=== PATIENT | male | born 1945 | race Caucasian/White ===

== ENCOUNTER 2022-08-10 09:49 | Observation (INO) | payer MEDICARE ==
[~2022-08-10] VITALS: Ht 180.3 cm; Wt 89.0 kg
[2022-08-10 10:14] LABS: BASOPHILS ABSOLUTE AUTO 0.02 K/mm3 (0.00-0.23); BASOPHILS PERCENT AUTO 0 % (0-2); EOSINOPHILS ABSOLUTE AUTO 0.07 K/mm3 (0.00-0.68); EOSINOPHILS PERCENT AUTO 1 % (0-6); Hematocrit 21.3 % (37.0-53.0); IMMATURE GRAN ABSOLUTE AUTO 0.02 K/mm3 (0.00-0.10); IMMATURE GRAN PERCENT AUTO 0 % (0-1); LYMPHOCYTES ABSOLUTE AUTO 0.75 K/mm3 (0.84-5.20); LYMPHOCYTES PERCENT AUTO 15 % (21-46); MONOCYTES PERCENT AUTO 10 % (4-13); Mean Corpuscular HGB 30.7 pg (26.0-34.0); Mean Corpuscular HGB Conc 32.9 g/dL (31.5-36.5); Mean Corpuscular Volume 93 fL (80-100); Mean Platelet Volume 11.5 fL (9.1-12.4); NEUTROPHILS ABSOLUTE AUTO 3.82 K/mm3 (1.96-9.15); NEUTROPHILS PERCENT AUTO 74 % (41-73); Platelet Count 138 K/mm3 (150-400); RDW Coefficient Variation 17.3 % (11.7-14.2); RDW Standard Deviation 59.2 fL (35.1-46.3); Red Blood Cell Count 2.28 M/mm3 (4.30-5.90); White Blood Cell Count 5.18 K/mm3 (4.00-11.30)
[2022-08-10 11:30] LABS: Thyroid Stimulating Hormone 1.8 uIU/mL (0.360-4.800)
[2022-08-10 12:19] LABS: Bilirubin, Total 1.7 mg/dL (0.1-1.0); Calcium, Blood 8.7 mg/dL (8.5-10.1); Creatinine, Blood 0.97 mg/dL (0.60-1.20); Globulin, Blood 2.9 g/dL (2.2-4.0); Potassium, Blood 3.6 mmol/L (3.5-5.5); Total Protein, Blood 5.9 g/dL (6.4-8.2)
[2022-08-10] MEDS ORDERED: ACET500 PO (14:49)
[2022-08-10] MEDS ORDERED: ATOR40TA PO (14:50)
[2022-08-10] MEDS ORDERED: ASCO500 PO (14:50)
[2022-08-10] MEDS ORDERED: FURO40 PO (14:57)
[2022-08-10] MEDS ORDERED: FEROSUL325 M1 PO (14:59)
[2022-08-10] MEDS ORDERED: LISI20 PO (15:00)
[2022-08-10] MEDS ORDERED: Daily Vitamin1 EAC8 PO (15:01)
[2022-08-10] MEDS ORDERED: OMEP20ER PO (15:02)
[2022-08-10] MEDS ORDERED: MIRALAX17 GM PO (15:02)
[2022-08-10] MEDS ORDERED: SENNA LAXATIVE8.6 MG PO (15:04)
[2022-08-10] MEDS ORDERED: Vitamin B Comple1 EA PO (15:14)
[2022-08-10] MEDS ORDERED: SPIR25 PO (15:14)
[2022-08-10] MEDS ORDERED: ONDA4ODT MM (15:15)
[2022-08-10] MEDS ORDERED: Prochlorperazin10 MG PO (15:16)
[2022-08-10] MEDS ORDERED: ALLO100 PO (15:17)
[2022-08-10] MEDS ORDERED: GABA300 PO ×2 (15:18→15:26)
[2022-08-10] MEDS ORDERED: FLUOROURACIL30 G2 TOP (15:30)
--- NOTE | 2022-08-10 17:09 | NUR ---
PATIENT TRANSFERED FROM ER THIS AFTERNOON, WITH LOW HGB, GI BLEED. ALLERGY CODEINE. ONE UNIT BLOOD RUNNING NOW, STARTING AT 1615. PATIENT HAS A NEW SP PACER (60), AND VALVE REPLACEMENT. HE WAS RESISTIVE TO COME TO MEDICAL, BUT HAS BEEN APPROPRIATE AND FRIENDLY SINCE ADMITTING. HE USES THE BEDSIDE URINAL WITH SBA. ALERT AND ORIENTATED. TELE IN PLACE. TEST DESIGNER CALLED 1710 STATING THAT PATIENT TAM INTO THE 30 FOR A FEW SECONDS AND THEN BACK UP. PATIENT UNAWARE AND IS NOT SYMPTOMATIC. PATIENT STATES THAT HE HAS HAD SOME YEAST ON THE GROIN. 1630 IV PROTONIX IS HELD DUE TO BLOOD INFUSING, WILL ATTEMPT TO OBTAIN A PO ORDER. TOLERATING TRANSFUSION WELL.
[2022-08-10 20:34] LABS: Hematocrit 20.4 % (37.0-53.0); Hemoglobin 6.6 g/dL (13.5-17.5)
[2022-08-11 02:26] LABS: Hemoglobin 6.9 g/dL (13.5-17.5)
--- NOTE | 2022-08-11 05:58 | NUR ---
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 PT DENIES SOB, CHEST PAIN. 20:22 HGB 6.6; NEW ORDER FOR 1 UNIT OF BLOOD AND 20MG IV LASIX. PT REQ TO WAIT UNTIL 0100 LABS F/BLOOD TRANSFUSION. HGB WAS 6.9; PT AGREED TO TRANSFUSION; PT TOLERATED WELL. PT ON TELE; PACED AT 60 BPM. PT CONT TO USED URINAL AT BEDSIDE. VSS. PT ABLE TO ADVOCATE FOR SELF AND CALLS APPROPRIATELY; CALL LIGHT IN REACH.
[2022-08-11 08:00] LABS: BASOPHILS ABSOLUTE AUTO 0.03 K/mm3 (0.00-0.23); BASOPHILS PERCENT AUTO 1 % (0-2); EOSINOPHILS PERCENT AUTO 2 % (0-6); Hematocrit 24.3 % (37.0-53.0); Hemoglobin 7.9 g/dL (13.5-17.5); IMMATURE GRAN ABSOLUTE AUTO 0.02 K/mm3 (0.00-0.10); IMMATURE GRAN PERCENT AUTO 0 % (0-1); LYMPHOCYTES ABSOLUTE AUTO 0.93 K/mm3 (0.84-5.20); LYMPHOCYTES PERCENT AUTO 18 % (21-46); MONOCYTES ABSOLUTE AUTO 0.47 K/mm3 (0.16-1.47); MONOCYTES PERCENT AUTO 9 % (4-13); Mean Corpuscular HGB 29.9 pg (26.0-34.0); Mean Corpuscular HGB Conc 32.5 g/dL (31.5-36.5); Mean Corpuscular Volume 92 fL (80-100); Mean Platelet Volume 11.4 fL (9.1-12.4); NEUTROPHILS PERCENT AUTO 70 % (41-73); NRBC ABSOLUTE 0.04 K/mm3 (0.00-0.02); NRBC Auto 0.8 /100 WBC (0.0-0.2); Platelet Count 137 K/mm3 (150-400); RDW Coefficient Variation 18.2 % (11.7-14.2); RDW Standard Deviation 59.5 fL (35.1-46.3); Red Blood Cell Count 2.64 M/mm3 (4.30-5.90); White Blood Cell Count 5.25 K/mm3 (4.00-11.30)
[2022-08-11 08:18] LABS: Albumin/Globulin Ratio 1.2 (0.8-1.8); Bilirubin, Total 2.6 mg/dL (0.1-1.0); Calcium, Blood 8.5 mg/dL (8.5-10.1); Globulin, Blood 2.5 g/dL (2.2-4.0); Potassium, Blood 3.7 mmol/L (3.5-5.5); Total Protein, Blood 5.5 g/dL (6.4-8.2)
--- NOTE | 2022-08-11 15:46 | NUR ---
PT TO DAY SURGERY VIA [facility]. Patient confirms NPO status and agrees with scheduled surgery. Pre-Op teaching done. Pt verbalizes understanding. Lungs clear T/O to Auscultation.
--- NOTE | 2022-08-11 16:16 | NUR ---
08/11/22 [address] GOMES; SEE ANESTHESIA RECORDS.
--- NOTE | 2022-08-11 16:24 | NUR ---
Upon receiving a referral for spiritual care, I visit pt. Pt immediately tells me about his medical history and the plan going forward. He explained about his thoughts about leaving [place], because he has financial coverage in [place] and [place] and he can't afford this trip. He shares about the low income bracket he is in and the housing insecurity that these bills may create. Pt also talks about his spiritual distress that began when his 11 yr old daughter was killed. His struggle with unforgiveness has caused spiritual and emotional pain for many yrs. He talks about his low coping skills and demenished resources. I provide theological insights, therapeutic listening, grief support, gentle middle school guidance counselor and prayer. Pt responds well and shows signs of resolve to stay until he is d/c and of increased peace. i will continue to remain available.
--- NOTE | 2022-08-11 16:53 | NUR ---
1650- RETURN FROM SCOPE PATIENT RETURNED FROM HIS PROCEDURE. HE IS RESTING IN BED WITH EYES CLOSED AND FEELING GOOD, WITH NO PAIN. DAY SURGERY SAID SCOPE WENT WELL. VITALS OBTAINED. STABLE. WILL CONTINUE TO MORNITOR AND AWAIT RESULT.
--- NOTE | 2022-08-11 18:09 | NUR ---
PATIENT DOING WELL AFTER PROCEDURE. VOIDED 150CC. DIET CHANGED TO CARDIAC HEART HEALTH AND A TRY NOW WILL BE HERE AT 1830. PATIENT DENIES PAIN. BP HAS BEEN SOFT DIASTOLIC, BUT IS RECOVERING. NO COMPLAINTS AT THIS TIME. PATIENT IS ADMITTED UNDER OBSERVATION STATUS.
--- NOTE | 2022-08-12 03:55 | NUR ---
SHIFT SUMMARY NO ACUTE CHANGES OVERNIGHT. PT DENIES PAIN, REPORTS SOME SORENESS FROM R GROIN FROM PREVIOUS TAVR PROCEDURE SITE. REMAIN TO HAVE RASHES ON GROIN REGION. IND IN ROOM. VOIDING. CALLS APPROPRIATELY. AOX4. VSS. DENIES CP AND SOB. PT ON ROOMAIR. PT DENIES DIZZINESS AND LIGHTHEADEDNESS. TOLERATING PO INTAKE, DENIES N/V. CALL LIGHT WITHIN REACH. WILL PROVIDE REPORT TO ONCOMING NURSE.
[2022-08-12 05:30] LABS: Hematocrit 21.1 % (37.0-53.0)
[2022-08-12 14:44] LABS: Hematocrit 27.5 % (37.0-53.0); Hemoglobin 9.1 g/dL (13.5-17.5)
[2022-08-12] MEDS ORDERED: PANT40 PO (15:46)
--- NOTE | 2022-08-12 16:22 | NUR ---
PT AWAKE AT START OF SHIFT, SITTING UP TO EOB. PT INFORMED OF POSSIBLE D/C TODAY. PT WANTING TO GO HOME AND HAD ARRANGED A RIDE TO PICK HIM UP THIS AM. PT TO RECEIVE 1 UNIT PRBC'S PRIOR TO D/C HOME. PT CALLED RIDE TO LET HIM KNOW NOT TO COME YET. DR SHARP HERE TO SEE PT AND DISCUSS PLAN OF CARE. BLOOD OBTAINED AND TRANSFUSED PER ORDERS. PT TOLERATED WELL. LAB CK DONE AFTER COMPLETION, PER ORDERS. H/H INCREASED TO 9.1; SEE CHART. DR SHARP INFORMED OF PT'S REFUSAL TO BE D/C'D TO HOME; CHANGING HIS MIND FROM YESTERDAY AND THIS AM. PT HAD ARGUED WITH ABOUT HAVING TO STAY LAST NIGHT, WANTING TO GO HOME AND HAVE LOWER SCOPE DONE AT HOME, IN NETWORK FOR INSURANCE. AFTER TRANSFUSION, PT THEN NOT WANTING TO GO HOME AND WANTING NOW TO HAVE LOWER SCOPE DONE HERE. PT INFORMED OF NO GI AVAILABLE UNTIL AFTER 08/16/22. PT THEN AGREED TO D/C TO HOME AND WILL F/U WITH PCP AND LABS ORDERED. PT MEDICALLY STABLE FOR D/C. D/C ORDERS PLACED AND REVIEWED WITH PT. PHARMACY ALSO REVIEWED D/C MEDS WITH PT PRIOR TO D/C. IV SITE D/C'D WNL'S. PT ABLE TO DRESS HIMSELF AND GATHER BELONGINGS. PT ASSISTED OUT TO [facility]I VIA W/C BY SIDE FRAMER.
== END 2022-08-12 17:04 | disposition home or self-care (01) ==
LOC: ER 09:49 → MEDS 09:50 → ER 13:23 → MEDS 13:23
PROVIDERS: Family Medicine Adult Medicine; Nurse Practitioner Acute Care; Student in an Organized Health Care Education/Training Program; ADMIT Hospitalist
DX: D62 Acute posthemorrhagic anemia (principal); K92.1 Melena; I10 Essential (primary) hypertension; E78.5 Hyperlipidemia, unspecified; M10.9 Gout, unspecified; R77.8 Other specified abnormalities of plasma proteins; Z95.0 Presence of cardiac pacemaker; Z95.2 Presence of prosthetic heart valve; Z87.891 Personal history of nicotine dependence; Z88.5 Allergy status to narcotic agent
CPT/HCPCS: 36415; 36430; 71045; 80053; 82272; 83735; 83880; 84443; 84484; 85014; 85018; 85025; 85379; 86850; 86900; 86901; 86923; 93005; 93010; 96374; 99285-25; A9270; C9113; J1940; J2704; J7050; J7120; P9016